=== PATIENT | female | born 1985 | race Caucasian/White ===

== ENCOUNTER 2022-09-29 11:12 | Emergency (ER) | payer OTHER, SELFPAY ==
--- NOTE | ~2022-09-29 | XR_ITS ---
EXAMINATION: XR toe 5th RT min 2V DATE: 09/29/2022 12:15 INDICATION: Stubbed right fifth toe presenting with pain and swelling TECHNIQUE: Dorsal plantar, lateral and 2 oblique views of the right fifth were obtained. COMPARISON: None FINDINGS: Oblique fracture of the mid to distal right fifth proximal phalanx, potentially with involvement of a small portion of the medial side of the distal articular cortex. Fracture remains minimally displace d with mild lateral angulation. No other fractures identified. Joint spaces are normal. IMPRESSION: Fracture of the mid-distal right fifth proximal phalanx with mild lateral angulation and potential in volvement of a small portion of the medial side of the articular cortex. Reviewed, dictated and finalized at location [facility] PROFESSOR IMPRESSION: Fracture of the mid-distal right fifth proximal phalanx with mild lateral angul ation and potential involvement of a small portion of the medial side of the ar ticular cortex.
[2022-09-29 11:20] VITALS: BP 106/63; PULSE 79; RESP 18; TEMP 36.7; O2SAT 98
--- NOTE | 2022-09-29 13:08 | ED.LOWEXIN ---
HPI - Extremity Injury (Lower) General Chief Complaint: Extremity Injury, Lower Stated Complaint: toe injury Time Seen by Provider: 09/29/22 11:37 Source: patient Mode of arrival: ambulatory Limitations: no limitations History of Present Illness HPI Narrative: Patient is a 37 y/o female who presents to the ED with c/o R 5th toe pain. Patient reports she stubbed her toe against a high pressure cleaner this morning with direct injury to her R 5th toe. She complains of pain and swelling to the toe. She is able to ambulate, but has pain with this. She took Tylenol and ibuprofen prior to arrival. No other injuries. No numbness, tingling. Related Data Allergies Allergy/AdvReac Type Severity Reaction Status Date / Time No Known Allergies Allergy Verified 09/29/22 11:23 Review of Systems Review of Systems: CONSTITUTIONAL: Denies fever, chills, or sweats. SKIN: See HPI. MUSCULOSKELETAL: See HPI. NEUROLOGIC: Denies tingling, numbness, or weakness. All systems reviewed & are unremarkable except as noted in HPI and below PMFSH Past Medical History Medical History (Updated 09/29/22 @ 13:26 by Suki Horton PA-C) No pertinent past medical history Surgical History Surgical History (Updated 09/29/22 @ 13:26 by Suki Horton PA-C) No pertinent past surgical history Social History Social History (Updated 09/29/22 @ 13:26 by Suki Horton PA-C) Smoking status: Never smoker Exam Narrative: GENERAL: Well appearing, well-nourished, non-toxic, in no acute distress. HEAD: Normocephalic, atraumatic. NECK: Supple. No adenopathy, no masses. RESPIRATORY: Airway patent, respirations nonlabored. CARDIOVASCULAR: Regular rate and rhythm without murmurs, rubs, or gallops. Pedal pulses 2+ and equal bilaterally. MUSCULOSKELETAL: Moves all extremities. Strength/ROM intact without gross deformities. TTP over R 5th proximal phalange extending into 5th MTP joint. No tenderness along more proximal 5th metatarsal. Mild swelling noted to R 5th toe. Sensation intact. Normal capillary refill. SKIN: Warm, dry, normal color. No rashes. NEURO: A&O X3. Speech clear. Cranial nerves II-XII grossly intact. Steady gait. No ataxic movements. PSYCHIATRIC: Appropriate mood and affect. Normal interaction. Course Vital Signs Vital signs: Vital Signs Temperature 98.1 F 09/29/22 11:20 Pulse Rate 79 09/29/22 11:20 Respiratory Rate 18 09/29/22 11:20 Blood Pressure 106/63 09/29/22 11:20 Pulse Oximetry 98 09/29/22 11:20 Oxygen Delivery Room Air 09/29/22 11:20 Temperature 98.1 F 09/29/22 11:20 Pulse Rate 84 09/29/22 13:24 Respiratory Rate 16 09/29/22 13:24 Blood Pressure 106/63 09/29/22 11:20 Pulse Oximetry 99 09/29/22 13:24 Oxygen Delivery Room Air 09/29/22 11:20 MDM - Extremity Injury (Lower) MDM Narrative Medical decision making narrative: Patient presented to ED after starting right fifth toe against cleaning product. Complains of pain and swelling to toe. Able to ambulate still. X-ray showing fracture of proximal phalanx of right 5th toe. Consistent with exam and injury. Patient otherwise neurovascularly intact. Discussed imaging findings with patient. Will nehemiah tape toes and provide patient with postop shoe. Also provided patient with crutches to avoid bearing weight on foot. Given orthopedic and podiatry information for follow-up. Discussed return precautions. Patient agrees with plan. She took Ibuprofen and Tylenol prior to arrival and did not want anything stronger for pain. Medical Records Attestation: I reviewed the patient's medical records. Imaging Data Attestation: I personally reviewed and interpreted this imaging study as follows: Radiologist's impression: ITS Impressions Toe X-Ray 09/29/22 13:53 IMPRESSION: Fracture of the mid-distal right fifth proximal phalanx with mild lateral angulation and potential involvement of a small portion of the medial side of t
[2022-09-29 13:24] VITALS: PULSE 84; RESP 16; O2SAT 99
== END 2022-09-29 13:25 | disposition home or self-care (01) ==
PROVIDERS: Emergency Provider Emergency Medicine; PCP Family Medicine
DX: S92.511A Displaced fracture of proximal phalanx of right lesser toe(s), initial encounter for closed fracture (principal); W22.8XXA Striking against or struck by other objects, initial encounter
CPT/HCPCS: 73660; 99284